=== PATIENT | female | born 1945 | race Hispanic/Latino ===

== ENCOUNTER → 2017-08-18 | Outpatient (CLI) | payer OTHER ==
[~2017-08-18] MED LIST: ASPI-555 PO; LEVO125T11 PO; METO25TA6 PO; PANT40TA25 PO; PRAV20TA4 PO
== END | disposition home or self-care (01) ==
LOC: SHCH 08:44
PROVIDERS: ATTEND Internal Medicine Cardiovascular Disease
DX: I87.2 Venous insufficiency (chronic) (peripheral) (principal)
CPT/HCPCS: 93970

== ENCOUNTER → 2017-12-10 | Outpatient (CLI) | payer OTHER | END | disposition home or self-care (01) | LOC: OIH 08:30 | PROVIDERS: ATTEND Family Medicine | DX: S92.355A Nondisplaced fracture of fifth metatarsal bone, left foot, initial encounter for closed fracture (principal); M85.872 Other specified disorders of bone density and structure, left ankle and foot; X58.XXXA Exposure to other specified factors, initial encounter; Y93.89 Activity, other specified; Y92.89 Other specified places as the place of occurrence of the external cause; Y99.8 Other external cause status | CPT/HCPCS: 73630 ==

== ENCOUNTER → 2018-11-03 | Outpatient (CLI) | payer OTHER | END | disposition home or self-care (01) | LOC: RAH 08:46 | PROVIDERS: ATTEND Family Medicine | DX: R92.0 Mammographic microcalcification found on diagnostic imaging of breast (principal) | CPT/HCPCS: 77066 ==

== ENCOUNTER → 2020-08-01 | Outpatient (CLI) | payer OTHER ==
[~2020-08-01] MED LIST changes: -ASPI-555 PO; +ASPI-556 PO; -PANT40TA25 PO; +PANT40TA54 PO
== END | disposition home or self-care (01) ==
LOC: SHCH 13:20
PROVIDERS: ATTEND Internal Medicine Cardiovascular Disease
DX: I35.8 Other nonrheumatic aortic valve disorders (principal); R01.1 Cardiac murmur, unspecified
CPT/HCPCS: 93306; 93356

== ENCOUNTER → 2020-10-22 | Outpatient (CLI) | payer OTHER | END | disposition home or self-care (01) | LOC: RAH 14:17 | PROVIDERS: ATTEND Family Medicine | DX: Z12.31 Encounter for screening mammogram for malignant neoplasm of breast (principal) | CPT/HCPCS: 77067 ==

== ENCOUNTER → 2024-01-29 | Outpatient (CLI) | payer OTHER | END | disposition home or self-care (01) | LOC: SHCH 15:03 | PROVIDERS: ATTEND Internal Medicine Cardiovascular Disease | DX: I08.3 Combined rheumatic disorders of mitral, aortic and tricuspid valves (principal); Z95.2 Presence of prosthetic heart valve; Z95.3 Presence of xenogenic heart valve; I11.9 Hypertensive heart disease without heart failure | CPT/HCPCS: 93306 ==

== ENCOUNTER 2024-04-25 20:55 | Emergency (ER) | payer OTHER ==
--- NOTE | 2024-04-25 21:42 | HMCIMG ---
CT HEAD/BRAIN W/O CONTRAST INDICATION: trauma TECHNIQUE: CT HEAD/BRAIN W/O CONTRAST. CT was performed with one or more of the following dose reduction techniques: Automated exposure control, adjustment of the mA and/or kV according to the patient's size, or use of the iterative reconstruction technique. Comparison: 11/26/2012 FINDINGS: Cerebral atrophy seen. Nonspecific periventricular and subcortical white matters changes are noted likely representing small vessel ischemic changes. No midline shift or herniation. No extra axial collection. No acute intracranial bleed. The visualized paranasal sinuses and mastoid air cells are normally aerated. IMPRESSION: Diffuse atrophy. No acute intracranial bleed is seen. Nonspecific white matter changes
[2024-04-25] MEDS: acetaMINOPHEN 325 MG TAB PO STA (21:43)
--- NOTE | 2024-04-25 21:44 | HMCIMG ---
CT CERVICAL SPINE W/O CONTRAST HISTORY: trauma TECHNIQUE: Noncontrast CT of the cervical spine. Sagittal and coronal images were produced. CT was performed with one or more of the following dose reduction techniques: Automated exposure control, adjustment of the mA and/or kV according to the patient's size, or use of the iterative reconstruction technique. FINDINGS: Evaluation of the cord and discs is limited with CT. No evidence of acute displaced fracture or dislocation. The lateral masses of C1 align with C2. No prevertebral soft tissue swelling. There is diffuse osteopenia degraded evaluation of the study. Multilevel degenerative changes are noted. Grade 1 anterolisthesis seen at C4-C5. Soft tissues of the neck are grossly within normal limits. This study cannot exclude ligamentous injury. IMPRESSION: No evidence of displaced cervical spine fracture or dislocation. Correlate clinically. There is diffuse osteopenia degraded evaluation of the study. Multilevel degenerative changes are noted. Grade 1 anterolisthesis seen at C4-C5.
--- NOTE | 2024-04-25 22:21 | HMCIMG ---
KNEE 3 VW BILATERAL REASON: trauma. COMPARISON: None TECHNIQUE: 4 images of bilateral knees were obtained. FINDINGS: Postop changes are seen of the left distal femur. Bilateral knee joint space narrowing are seen. Vascular calcifications are seen. Bony osteopenia is seen. There is no acute displaced fracture or dislocation. IMPRESSION: Findings as described above.
--- NOTE | 2024-04-25 22:51 | ERN ---
ED Note History of Present Illness Stated Complaint: BILATERAL KNEE PAIN/INJURY Chief Complaint: Knee Injury/Swelling Time Seen by MD: 21:08 Time Seen by Midlevel: 21:10 Dictation: 78-year-old female coming in status post fall. Patient states she was moving a desk when she fell forward hit her head on the wall and landed on her knees. Patient is complaining of bilateral knee pain in mild headache. Denies any LOC, in his not sure if she takes any blood thinners. Allergies: Coded Allergies: No Known Drug Allergies (Verified Allergy, Unknown, 12/16/15) naproxen (Unverified Allergy, Unknown, HIVES, 12/16/15) Home Meds Reported Medications Metoprolol Tartrate (Metoprolol Tartrate) 25 Mg Tablet, 12.5 MG PO BID, TAB 01/13/16 Aspirin (Aspir 81) 81 Mg Tablet.dr, 81 MG PO DAILY, TAB 01/13/16 Pravastatin Sodium (Pravastatin Sodium) 20 Mg Tablet, 20 MG PO NOON, TAB 12/16/15 Levothyroxine Sodium (Levothyroxine Sodium) 125 Mcg Tablet, 125 MCG PO DAILY, TAB 12/16/15 Pantoprazole Sodium (Pantoprazole Sodium) 40 Mg Tablet.dr, 40 MG PO HS, TAB 12/16/15 Past Medical History Past Medical History: Diabetes-Type II, High Cholesterol, Hypertension Surgical History: None Review of System Dictation Constitutional: Negative for fever,chills, and weight loss Eyes: Negative for injury, pain,redness, and discharge ENT: Negative for injury,pain or swelling Cardiovascular: Negative for chest pain, palpitations, and edema Respiratory: Negative for shortness of breath, cough, and wheezing, Abdomen/GI: Negative for abdominal pain, nausea, vomiting, diarrhea, and co nstipation Back: Negative for injury and pain : Negative for injury, bleeding and discharge MS/Extremity: Complaining of bilateral knee pain Skin: Negative for rash, and discoloration Neuro: Negative for headache, weakness, numbness, tingling, and seizure complaining of mild headache Psych: Negative for suicide ideation, homicidal ideation, and hallucinations Review of Systems: was completed Initial Vital Sign VS Vital Signs Date Time Temp Pulse Resp B/P (MAP) Pulse Ox O2 Delivery O2 Flow Rate FiO2 04/25/24 20:58 98.1 82 16 109/69 96 Room Air 0 Physical Exam Dictation General: awake, alert, NAD Head/Face: Normocephalic, atraumatic Eyes: PERRL, EOMI, vision at baseline ENT: oral cavity clear, TMs clear, no signs of infection Neck: Trachea midline, supple, no nuchal rigidity Cardiovascular: RRR, normal S1/S2, No MRGs, no JVD Respiratory: CTAB, no respiratory distress, No rales or wheezes Abdomen: Soft, non-tender, non-distended, normal bowel sounds, no guarding or rebound. Skin: Warm, dry, normal turgor, no rash MS/Extremity: Pulses equal, no cyanosis, neurovascular intact, FROM Neuro: COAx4, GCS 15, strength 5/5, CN 2-12 intact, normal cerebellar exam, normal gait, Psych: Normal behavior, mood, and affect normal Results (Laboratory/Radiology) X-RAY Comment: [address] [id number] IMAGING REPORT Signed PATIENT: IVY ROMERO MR#: [id number] : 1945 SEX: F AGE: 78 LOCATION: [facility] ORDER 14 STATUS: [facility] REPORT#: [id number] SERVICE 11 REASON: trauma ORDERING PHYSICIAN: NATO NAYLOR NP PROCEDURE: KNEE 3VBIL - KNEE 3 VW BILATERAL KNEE 3 VW BILATERAL REASON: trauma. COMPARISON: None TECHNIQUE: 4 images of bilateral knees were obtained. FINDINGS: Postop changes are seen of the left distal femur. Bilateral knee joint space narrowing are seen. Vascular calcifications are seen. Bony osteopenia is seen. There is no acute displaced fracture or dislocation. IMPRESSION: Findings as described above. DICTATED BY: MARIA EUGENIA LARA MD DATE: 04/25/242215 ELECTRONICALLY SIGNED BY: MARIA EUGENIA LARA MD DATE: 04/25/242220 CT Scan Comment: [place] [id number] [id number] IMAGING REPORT Signed PATIENT: IVY ROMERO MR#: [id number] : 1945 SEX: F AGE: 78 LOCATION: ED ORDER 14 STATUS: [facility] REPORT#: [id number] SERVICE 11 REASON: trauma ORDERING PHYSICIAN: NATO NAYLOR NP PROCEDURE: HEAD WO - CT HEAD/BRAIN W/O CONTRAST CT HEAD/BRAIN W/O CONTRAST INDICATION: trauma TECHNIQUE: CT HEAD/BRAIN W/O CONTRAST. CT was performed with one or more of the following dose reduction techniques: Automated exposure control, adjustment of the mA and/or kV according to the patient's size, or use of the iterative reconstruction technique. Comparison: 11/26/2012 FINDINGS: Cerebral atrophy seen. Nonspecific periventricular and subcortical white matters changes are noted likely representing small vessel ischemic changes. No midline shift or herniation. No extra axial collection. No acute intracranial bleed. The visualized paranasal sinuses and mastoid air cells are normally aerated. IMPRESSION: Diffuse atrophy. No acute intracranial bleed is seen. Nonspecific white matter changes DICTATED BY: MARKUS ARREDONDO MD DATE: 04/25/242137 ELECTRONICALLY SIGNED BY: MARKUS ARREDONDO MD DATE: 04/25/242141 [address] [id number] IMAGING REPORT Signed PATIENT: IVY ROMERO MR#: [id number] : 1945 SEX: F AGE: 78 LOCATION: ED ORDER 14 STATUS: [facility] REPORT#: [id number] SERVICE 11 REASON: trauma ORDERING PHYSICIAN: NATO NAYLOR NP PROCEDURE: C SPIN WO - CT CERVICAL SPINE W/O CONTRAST CT CERVICAL SPINE W/O CONTRAST HISTORY: trauma TECHNIQUE: Noncontrast CT of the cervical spine. Sagittal and coronal images were produced. CT was performed with one or more of the following dose reduction techniques: Automated exposure control, adjustment of the mA and/or kV according to the patient's size, or use of the iterative reconstruction technique. FINDINGS: Evaluation of the cord and discs is limited with CT. No evidence of acute displaced fracture or dislocation. The lateral masses of C1 align with C2. No prevertebral soft tissue swelling. There is diffuse osteopenia degraded evaluation of the study. Multilevel degenerative changes are noted. Grade 1 anterolisthesis seen at C4-C5. Soft tissues of the neck are grossly within normal limits. This study cannot exclude ligamentous injury. IMPRESSION: No evidence of displaced cervical spine fracture or dislocation. Correlate clinically. There is diffuse osteopenia degraded evaluation of the study. Multilevel degenerative changes are noted. Grade 1 anterolisthesis seen at C4-C5. DICTATED BY: MARKUS ARREDONDO MD DATE: 04/25/242138 ELECTRONICALLY SIGNED BY: MARKUS ARREDONDO MD DATE: 04/25/242143 ED Course ED Course Orders Procedure Category Date Status Time Knee 3 Vw Bilateral RAD 04/25/24 Resulted 21:12 Ct Head/Brain W/O CT 04/25/24 Resulted Contrast 21:12 Ct Cervical Spine W/O CT 04/25/24 Resulted Contrast 21:12 Acetaminophen 325 Tab PHA 04/25/24 Complete (Tylenol 325mg Tab 21:12 Current Medications Medications (Trade) Dose Ordered Sig/Jacqueline Route PRN Reason Start Time Stop Time Status Last Admin Dose Admin Acetaminophen (TYLenol 325MG TAB) 650 mg ONCE STAT PO 04/25/24 21:12 04/25/24 21:15 DC 04/25/24 21:43 Vital Signs Date Time Temp Pulse Resp B/P (MAP) Pulse Ox O2 Delivery O2 Flow Rate FiO2 04/25/24 20:58 98.1 82 16 109/69 96 Room Air 0 Medical Decision Making MDM MDM: 78-year-old female coming in status post fall. Patient states she was moving a desk when she fell forward hit her head on the wall and landed on her knees. Patient is complaining of bilateral knee pain in mild headache. Denies any LOC, in his not sure if she takes any blood thinners. On physical exam there are no obvious deformities or abrasions, lung sounds are clear bilaterally, no nausea no vomiting, no head injury noted. Patient has full range of motion to all extremities. X-ray of the knee shows no acute fracture or dislocation, CT of the head and neck showed no acute findings. Educated patient that she needs to take Tylenol or Motrin [id number] for pain management and follow up with PCP if symptoms worsen. Differential diagnosis: Patellar fracture, ICH, knee contusion Rationale: Tests considered and ordered secondary to shared decision making include: Previous outside records reviewed: Old ER visits. Risk of complication and/or morbidity or mortality of patient management: None Medications-Per medication reconciliation Need for hospitalization: Patient does not meet criteria for hospitalization. Need for emergency major/minor surgery: No There are no social concerns with this patient. Prescription drug management Prescriptions will include symptomatic care Patient's prior external medical records from other ER visits were reviewed by me as indicated. Prior testing and results from previous visits were reviewed. Prior tests were taken into account with medical decision making and resource utilization, independent historian/historians were used to obtain complete medical history. I independently interpreted the test that were performed, results were reviewed by me and considered findings on radiology if ordered. Medical management and examination interpretation discussions were had by me with other qualified healthcare professionals as indicated for the patient's care. DX & DISP Disposition: Discharge Departure Impression: Primary Impression: Knee contusion Condition: Stable Additional Instructions: You can take Tylenol [id number] for pain management. Follow up with your primary doctor in 1-2 days. Return to the ER if symptoms worsen. Referrals: ALBINA BETANCOURT MD (PCP) Time of Disposition: 23:06 I have reviewed the case, and I agree with, Diagnosis and Plan NATO NAYLOR NP Apr 25, 2024 22:51
[2024-04-25 23:20] VITALS: BP 156/67; PULSE 74; RESP 18; TEMP 96.9; O2SAT 98
== END 2024-04-25 23:21 | disposition home or self-care (01) ==
LOC: EDH 20:55
DX: S80.01XA Contusion of right knee, initial encounter (principal); S80.02XA Contusion of left knee, initial encounter; E11.9 Type 2 diabetes mellitus without complications; E78.00 Pure hypercholesterolemia, unspecified; I10 Essential (primary) hypertension; Z79.82 Long term (current) use of aspirin; Z79.890 Hormone replacement therapy; Z88.6 Allergy status to analgesic agent; W18.39XA Other fall on same level, initial encounter; Y93.89 Activity, other specified; Y92.89 Other specified places as the place of occurrence of the external cause; Y99.8 Other external cause status
CPT/HCPCS: 70450; 72125; 99284

== ENCOUNTER → 2024-08-11 | Outpatient (CLI) | payer OTHER ==
--- NOTE | 2024-08-11 16:43 | HMCIMG ---
CT CHEST WITHOUT CONTRAST, HIGH-RESOLUTION CT RECONSTRUCTIONS INDICATION: Systemic sclerosis? TECHNIQUE: Routine axial images using 5 mm slice thickness were acquired from the lung apices to the bases without the administration of IV contrast.Coronal and sagittal reformatted images acquired for interpretation. High-resolution segmental imaging in inspiratory and expiratory phases also provided. CT was performed with one or more of the following dose reduction techniques: Automated exposure control, adjustment of the mA and/or kV according to patient size, or use of iterative reconstruction technique. COMPARISON: 12/28/2022 FINDINGS: Median sternotomy wires are in appropriate alignment. The heart size is normal. Coronary arterial wall calcific plaque noted. No pericardial effusion noted. Mild calcific plaque is present along the aortic arch and thoracic aortic kay without aneurysmal dilation. The trachea and airways are patent. No evidence for pulmonary nodule, consolidation, or cavitary lesion. Stable lateral left lung base micronodule for which no further follow-up will be necessary based on 2017 Fleischner Society recommendations. No axillary, hilar, or mediastinal lymphadenopathy. No pleural effusion or pneumothorax identified. Several subcentimeter calcific gallstones. Visible osseous structures are intact. IMPRESSION: 1. No evidence for any acute cardiopulmonary process. 2. Cholelithiasis. 3. Arteriosclerotic disease as described.
--- NOTE | 2024-08-11 17:58 | HMCSR ---
APPROVED REPORT EXAM: Two-dimensional and M-mode echocardiogram with Doppler and color Doppler. INDICATION ICD: R06.2 2D Dimensions RVDd4.2 cmLVEF(%)52.2 (>50%)LVED Vol(simp.)80.2 mL IVSd0.6 (0.7-1.1cm)FS(%)27 %LVES Vol(simp.)30.9 mL LVDd4.3 (3.8-5.6cm)LA (2D)3.2 (1.6-4.0cm)LVEF(%, simp.)61 % PWd0.9 (0.7-1.1cm)Ao Root(2D)2.2 (2.0-3.7cm)LA ESV INDEX (BP)32.94 mL/m2 LVDs3.2 (2.5-4.0cm)LVOT diam2.0 (1.8-2.4cm) M-Mode Dimensions EPSS0.9 cm Aortic Valve AoV Vmax3.4 m/[place] GR45.0 mmHgLVOT Vmax1.1 m/s AoV VTI0.9 mAo Mean GR26.0 mmHgLVOT VTI0.31 m MARIA ESTHER (VMAX)1.1 cm2Al P1/2T341 msAVA (VTI) 1.1 cm2 Mitral Valve MV E Qjnw257.1 cm/sDECEL Fzul528 ms MV A Oibi395.1 cm/sP 1/2 T66 ms E/A ratio1.1MVA (PHT)3.3 cm2 Left Ventricle The left ventricle is normal size. There is normal LV segmental wall motion. There is normal left alan tricular wall thickness. LVEF is 60-65%. Indeterminate diastolic dysfunction. Right Ventricle The right ventricle is normal size. The right ventricular systolic function is normal. Atria The left atrium size is normal. The right atrium size is normal. Aortic Valve Bioprosthetic valve is present. Bioprosthesis is not well visualized Can not appreciate any periprost hetic regurgitation or central regurgitation on color flow Doppler There is moderate valvular aortic stenosis. Highest mean aortic valve gradient is 29mmHg. Peak aortic valve gradient is 49mmHg. Mitral Valve Mitral valve leaflets open well. Moderate mitral annular calcification present. Mitral regurgitation is mild. There is no mitral valve stenosis. Tricuspid Valve The tricuspid valve is normal in structure. There is no tricuspid valve regurgitation noted. Pulmonic Valve The pulmonary valve is normal in structure. There is no pulmonic valvular regurgitation. Great Vessels The aortic root is normal in size. Due to poor image quality, the IVC could not be assessed. Pericardium There is no pericardial effusion. Other Information Technically limited study due to body habitus. Conclusion LVEF is 60-65%. There is normal LV segmental wall motion. Bioprosthetic valve is present. There is moderate valvular aortic stenosis. Highest mean aortic valve gradient is 29mmHg. Peak aortic valve gradient is 49mmHg. There is no pericardial effusion.
== END | disposition home or self-care (01) ==
LOC: RAH 13:20
PROVIDERS: ATTEND Internal Medicine
DX: I08.0 Rheumatic disorders of both mitral and aortic valves (principal); R06.02 Shortness of breath; M34.9 Systemic sclerosis, unspecified; K80.20 Calculus of gallbladder without cholecystitis without obstruction; I70.0 Atherosclerosis of aorta; I25.10 Atherosclerotic heart disease of native coronary artery without angina pectoris; Z95.3 Presence of xenogenic heart valve
CPT/HCPCS: 71250; 93306